=== PATIENT | male | born 1980 ===

== ENCOUNTER 2023-02-21 19:37 | Inpatient (IN) | payer OTHER, SELFPAY ==
[2023-02-21 19:50] VITALS: BP 107/60; PULSE 62; RESP 18; TEMP 36.1; O2SAT 96
[2023-02-21 20:21] VITALS: BMI 22.3
--- NOTE | 2023-02-21 21:39 | P.CONHOSP_ITS ---
History of Present Illness Data of Consult Service Date: 02/21/23 Primary Care Provider: Unknown Physician HPI Reason for consult: Admission H&P Pt is a 42-year-old male with a PMH significant for?hx of CVA, hepatits C treated in 2011, remote hx of IVDU/opioid dependence, current cocaine use disorder, homelessness, and depression who is admitted to psychiatry unit for increasing depression with SI attempt by overdosing on cocaine and fentanyl last night. Patient is currently homeless and sleeping on friend's couches. Has a history of previous suicide attempts including jumping off a bridge. Medical consult for admission H&P. ?Patient states he experienced a CVA at 17 years of age. Story surrounding his stroke is rather unclear, and it is uncertain whether d/t hereditary clotting disorder or substance use. Has residual right-sided weakness s/p CVA. Patient also states that last night he attempted to OT cocaine laced with fentanyl. Denies recent IVDU. Patient otherwise denies any acute medical complaints, stating that he feels ?great?. No chest pain/pressure, palpitations. Denies shortness of breath. No fever, chills, nausea, vomiting, abdominal pain. Denies headache, acute vision changes. CMP reviewed, grossly unremarkable. Review of Systems 2 Review of Systems: Chronic right-sided weakness Patient otherwise has no acute medical complaints at this time [facility] Medical History (Updated 02/22/23 @ 11:39 by ERIBERTO Dickens) Depression Cocaine use disorder Opioid dependence Hepatitis C CVA (cerebral vascular accident) Social History Household Members: None Housing: Homeless Do you presently have visiting nurse or other home services: No Patient Tobacco Use Status: Current everyday Tobacco user Tobacco use type: Cigarette Cigarettes Per Day: 6 Years Smoked: 20 years Smoked in Last 30 Days: Yes Patient Interested in Nicotine Replacement: Yes Patient Given Instructions on How to Stop Smoking: No Second Hand Smoke Exposure: Yes Use of substances other than those prescribed or required for medical reasons: Yes Substance Use Type: Crack/Cocaine, Marijuana and Other Substance Use Type Other:: fentynal Substance Use Frequency: Monthly Last Used Substance: Days (ago) Last Used Substance Other:: constantino read Currently Displaying Signs/Symptoms of Drug Intoxication Withdrawal: No Any prior treatment program specific to substance use: No Have you been hit, kicked, punched, or otherwise hurt by someone within the past year? If so, by whom?: No Do you feel safe in your current relationship?: No Current Relationship Is there a partner from a previous relationship who is making you feel unsafe now?: No Are you made to feel afraid or neglected: No Advance Directives: No Advance Directives Information Provided: No Do you have thoughts of harming others: None Do you have a plan to hurt others: No Plan Recently lost weight without trying: Yes How much weight loss: 2-13 pounds Eating poorly because of decreased appetite: No Nutrition screen score: 3 Nutrition Risks: No Nutritional Risk Poor oral hygiene: Yes Meds Allergies Allergy/AdvReac Type Severity Reaction Status Date / Time No Known Allergies Allergy Verified 02/21/23 20:44 Active Medications: Current Medications Acetaminophen (Acetaminophen 325 Mg Tablet) 650 mg PO Q6H PRN PRN Reason: Headache/Pain Mild Scale (1-3) Al Hydroxide/Mg Hydroxide (Magnesium Hydrox/Alum Hydrox 30 Ml Oral.Susp) 30 ml PO Q6H PRN PRN Reason: Heartburn/Nausea Aripiprazole (Aripiprazole 2 Mg Tablet) 2 mg PO DAILY JAMES Clopidogrel Bisulfate (Clopidogrel Bisulfate 75 Mg Tablet) 75 mg PO DAILY JAMES Escitalopram Oxalate (Escitalopram Oxalate 20 Mg Tablet) 20 mg PO DAILY JAMES Hydroxyzine HCl (Hydroxyzine Hcl 25 Mg Tablet) 25 mg PO Q6H PRN PRN Reason: Anxiety Magnesium Hydroxide (Milk Of Magnesia 30 Ml Oral.Susp) 30 ml PO DAILY PRN PRN Reason: Constipation Nicotine Polacrilex (Nicotine Polacrilex 2 Mg Gum) 4 mg BUCCAL Q2H PRN PRN Reason: Nicotine Cravings Trazodone HCl (Trazodone Hcl 50 Mg Tablet) 50 mg PO BEDTIME MRX1 PRN PRN Reason: Insomnia Home Medications Medication Instructions Recorded Confirmed Last Taken Type aripiprazole 2 mg tablet 2 mg PO DAILY 02/21/23 02/21/23 Unknown History citalopram 40 mg tablet 40 mg PO QPM 02/21/23 02/21/23 Unknown History clopidogrel 75 mg tablet 75 mg PO DAILY 02/21/23 02/21/23 Unknown History escitalopram oxalate 20 mg tablet 20 mg PO DAILY 02/21/23 02/21/23 Unknown History Physical Exam 2 Vital Signs and Narrative: Vital Signs: BMI result Body Mass Index 22.3 General: AOx3, no acute distress Resp: CTA bilaterally CVS: S1, S2, RRR GI: +BS, NT, no distention Skin: Warm, dry Neuro: Cranial nerves II-XII grossly intact bilaterally. Motor grossly intact bilaterally. Decreased strength of RUE and RLE. Extremities: No edema Psych: Appropriate affect Results Labs 02/22/23 07:29 Assessment and Plan (1) Medical clearance for psychiatric admission: Status: Acute Plan Pt is a 42-year-old male with a PMH significant for?hx of CVA, hepatits C treated in 2011, remote hx of IVDU/opioid dependence, current cocaine use disorder, homelessness, and depression who is admitted to [facility] psychiatry unit for increasing depression with SI attempt by overdosing on cocaine and fentanyl last night. Patient is currently homeless and sleeping on friend's couches. Has a history of previous suicide attempts including jumping off a bridge. Medical consult for admission H&P. Mood disorder Plan as per Psychiatry Hx of CVA Likely secondary to primary hypercoagulable state Continue Plavix Polysubstance use disorder Patient OD'd on cocaine and fentanyl on 02/20/2023 Plan as per Psychiatry Patient otherwise has no acute medical complaints at this time. Thank you for allowing us to participate in the care of this patient. Signing off at this time. Please re-consult if any acute complaints or issues arise.
--- NOTE | 2023-02-22 00:18 | PC.ADMIT ---
Brett was admitted from [facility] on a CV for MDD. he is alert and oriented, pleasant and cooperative with the admission. His appearance id disheveled but patient refused to shower. I'll take one in the morning He states that he has lost approximately 20 lbs recently stating homelessness, poor access to food and depression as causes for his weight loss. patient stated that his biggest problem is depression. I overdosed yesterday but I wasn't trying to kill myself patient states he is homeless because he used to live with my mother but she last July patient is noted to have poor eye contact. He is noted to be mumbling his answers and is somewhat soft spoken. patient oriented to the unit, monitor for safety, treatment plan initiated
[2023-02-22 07:40] VITALS: BP 112/59; PULSE 58; TEMP 36.7; O2SAT 92
[2023-02-22 07:56] LABS: Estimated Average Glucose 108 mg/dL; Hemoglobin A1c % 5.4 % (<6.0)
[2023-02-22 08:13] LABS: Alanine Aminotransferase 47 U/L (0-40); Albumin Level 3.4 g/dL (3.5-5.0); Alkaline Phosphatase 69 U/L (39-117); Anion Gap 12 (12-20); Aspartate Amino Transferase 37 U/L (5-37); Bilirubin Total 0.2 mg/dL (0.0-1.0); Blood Urea Nitrogen 20 mg/dL (9-16); Calcium 8.7 mg/dL (8.4-10.2); Carbon Dioxide 21 mmol/L (22-29); Chloride 109 mmol/L (96-108); Cholesterol 129 mg/dL (<200); Creatinine Clr Calc Pharmacy 124.8; Estimated Glomerular Filt Rate > 60; Glucose Fasting 96 mg/dL (60-99); HDL Cholesterol 47 mg/dL (>40); LDL Cholesterol Calculated 74 mg/dL (<100); Potassium 4.8 mmol/L (3.3-5.1); Sodium 137 mmol/L (135-145); Total Protein 6.2 g/dL (6.5-8.0); Triglycerides 40 mg/dL (<150)
[2023-02-22 08:24] LABS: Free T4 (Free Thyroxine) 0.84 ng/dL (0.71-1.85); Thyroid Stimulating Hormone 0.37 uIU/mL (0.32-4.0)
[2023-02-22 08:35] LABS: Folate 8.2 ng/mL (> or = 4.0); Vitamin B12 867 pg/mL (200-900)
[2023-02-22] MEDS: Escitalopram Oxalate 20 MG TABLET PO (09:25)
[2023-02-22] MEDS: Clopidogrel Bisulfate 75 MG TABLET PO (09:25)
[2023-02-22] MEDS: ARIPiprazole 2 MG TABLET PO (09:27)
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
[2023-02-22 20:24] VITALS: BP 105/65; PULSE 68; RESP 16; TEMP 36.4; O2SAT 94
[2023-02-23 09:27] VITALS: BP 116/63; PULSE 68; RESP 16; TEMP 36.6; O2SAT 95
[2023-02-23] MEDS: Escitalopram Oxalate 20 MG TABLET PO (09:31)
[2023-02-23] MEDS: Clopidogrel Bisulfate 75 MG TABLET PO (09:31)
[2023-02-23] MEDS: ARIPiprazole 2 MG TABLET PO (09:32)
[2023-02-23 19:50] VITALS: BP 108/62; PULSE 70; RESP 18; TEMP 36.6; O2SAT 96
--- NOTE | 2023-02-23 20:32 | HO.PSYCHPN ---
Subjective Subjective Date of Service: 02/23/23 Reason For Visit: F33.1 MDD Interim History: feels depression is a bit better since restarting meds. no questions or complaints. per staff, dep 6, anx 0. no AVH. isolative. Mental Status Exam Mental Status Exam Narrative: disheveled, thin. cooperative. no PMA/PMR. speech nml rate, amount, loudness, tone, latency. thoughts generally linear and logical. affect full range, normo-intense, non-labile. mood a little bit better. no SI/HI/AVH expressed. Diagnostics Vital Signs (24Hr): Vital Signs - 24 hr 02/23/23 09:27 Temperature 97.8 F Pulse Rate 68 Respiratory Rate 16 Blood Pressure 116/63 Pulse Oximetry 95 Oxygen Delivery Method Room Air BMI result Body Mass Index 22.3 Labs 02/22/23 07:29 Labs: Laboratory Results - last 48 hr 02/22/23 07:29 Sodium 137 Potassium 4.8 Chloride 109 H Carbon Dioxide 21 L Anion Gap 12 BUN 20 H Creatinine 0.86 Estim Creat Clear Calc 124.8 Estimated GFR > 60 Fasting Glucose 96 Estimat Average Glucose 108 Hemoglobin A1c % 5.4 Calcium 8.7 Total Bilirubin 0.2 AST 37 ALT 47 H Alkaline Phosphatase 69 Total Protein 6.2 L Albumin 3.4 L Triglycerides 40 Cholesterol 129 LDL Cholesterol, Calc 74 HDL Cholesterol 47 Vitamin B12 867 Folate 8.2 TSH 0.37 Free T4 0.84 Medications Medications Current Medications Acetaminophen (Acetaminophen 325 Mg Tablet) 650 mg PO Q6H PRN PRN Reason: Headache/Pain Mild Scale (1-3) Al Hydroxide/Mg Hydroxide (Magnesium Hydrox/Alum Hydrox 30 Ml Oral.Susp) 30 ml PO Q6H PRN PRN Reason: Heartburn/Nausea Aripiprazole (Aripiprazole 2 Mg Tablet) 2 mg PO DAILY [facility] Last Admin: 02/23/23 09:32 Dose: 2 mg Clopidogrel Bisulfate (Clopidogrel Bisulfate 75 Mg Tablet) 75 mg PO DAILY [facility] Last Admin: 02/23/23 09:31 Dose: 75 mg Escitalopram Oxalate (Escitalopram Oxalate 20 Mg Tablet) 20 mg PO DAILY [facility] Last Admin: 02/23/23 09:31 Dose: 20 mg Hydroxyzine HCl (Hydroxyzine Hcl 25 Mg Tablet) 25 mg PO Q6H PRN PRN Reason: Anxiety Magnesium Hydroxide (Milk Of Magnesia 30 Ml Oral.Susp) 30 ml PO DAILY PRN PRN Reason: Constipation Nicotine Polacrilex (Nicotine Polacrilex 2 Mg Gum) 4 mg BUCCAL Q2H PRN PRN Reason: Nicotine Cravings Trazodone HCl (Trazodone Hcl 50 Mg Tablet) 50 mg PO BEDTIME MRX1 PRN PRN Reason: Insomnia Allergies Allergies Allergy/AdvReac Type Severity Reaction Status Date / Time No Known Allergies Allergy Verified 02/21/23 20:44 Assessment & Plan Assessment & Plan (1) Depression: Status: Acute Code(s): F32.A - Depression, unspecified (2) Opioid dependence: Status: Acute Code(s): F11.20 - Opioid dependence, uncomplicated (3) Cocaine use disorder: Status: Acute Code(s): F14.10 - Cocaine abuse, uncomplicated (4) CVA (cerebral vascular accident): Status: Acute Code(s): I63.9 - Cerebral infarction, unspecified Plan 02/22: restart on outpt medications regimen. 02/23: gradually improving mood. continue current mgmt. Reason for continued inpatient stay Substantial Risk for: inability to function and rapid decompensation Time Spent With Patient Time: Total time managing care of this patient today ____ minutes.
[2023-02-24 07:20] VITALS: BP 106/64; PULSE 60; RESP 18; TEMP 36.6; O2SAT 94
[2023-02-24] MEDS: Escitalopram Oxalate 20 MG TABLET PO (08:39)
[2023-02-24] MEDS: ARIPiprazole 2 MG TABLET PO (08:39)
[2023-02-24] MEDS: Clopidogrel Bisulfate 75 MG TABLET PO (08:39)
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
[2023-02-24 20:10] VITALS: BP 110/58; PULSE 62; RESP 15; TEMP 36.6; O2SAT 99
[2023-02-25] MEDS: Escitalopram Oxalate 20 MG TABLET PO (08:10)
[2023-02-25] MEDS: ARIPiprazole 2 MG TABLET PO (08:12)
[2023-02-25] MEDS: Clopidogrel Bisulfate 75 MG TABLET PO (08:12)
[2023-02-25 09:00] VITALS: BP 96/64; PULSE 52; RESP 16; TEMP 36.2; O2SAT 99
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
== END 2023-02-25 12:55 | disposition home or self-care (01) | DRG 881 ==
PROVIDERS: Admitting Provider Psychiatry & Neurology Psychiatry; Visit Provider Psychiatry & Neurology Psychiatry
DX: F32.A Depression, unspecified (principal); R45.851 Suicidal ideations; Z59.02 Unsheltered homelessness; F11.20 Opioid dependence, uncomplicated; I69.351 Hemiplegia and hemiparesis following cerebral infarction affecting right dominant side; D68.9 Coagulation defect, unspecified; I69.320 Aphasia following cerebral infarction; F39 Unspecified mood [affective] disorder; F17.210 Nicotine dependence, cigarettes, uncomplicated; F14.10 Cocaine abuse, uncomplicated; Z91.148 Patient's other noncompliance with medication regimen for other reason; Z91.51 Personal history of suicidal behavior; Z86.19 Personal history of other infectious and parasitic diseases; Z71.6 Tobacco abuse counseling; Z79.02 Long term (current) use of antithrombotics/antiplatelets; Z79.899 Other long term (current) drug therapy
CPT/HCPCS: 36415; 80053; 80061; 82607; 82746; 83036; 84439; 84443

== ENCOUNTER → 2023-02-21 19:37 | Outpatient (BNV) | payer OTHER, SELFPAY | PROVIDERS: Admitting Provider Psychiatry & Neurology Psychiatry; Visit Provider Student in an Organized Health Care Education/Training Program | DX: Z02.2 Encounter for examination for admission to residential institution (principal) | CPT/HCPCS: 99429 ==

== ENCOUNTER → 2023-02-21 19:37 | Outpatient (BNV) | payer OTHER, SELFPAY | PROVIDERS: Admitting Provider Psychiatry & Neurology Psychiatry; Visit Provider Psychiatry & Neurology Psychiatry | DX: F33.2 Major depressive disorder, recurrent severe without psychotic features (principal); F14.10 Cocaine abuse, uncomplicated; F11.20 Opioid dependence, uncomplicated; I63.9 Cerebral infarction, unspecified | CPT/HCPCS: 90792; 99231; 99239 ==